=== PATIENT | female | born 1990 | race American Indian/Alaskan Native ===

== ENCOUNTER 2017-06-01 05:24 | Inpatient (IN) | payer OTHER ==
[~2017-06-01 05:24] MED LIST: Lactated Ringers 1,000 ML IV SCH; Oxytocin/Lactated Ringers 10 UNIT/1,000 ML BAG IV SCH; Sodium Chloride 0.9% 10 ML Syringe FLUSH PRN
[2017-06-01] MEDS ORDERED: ceFAZolin 2 GM in Premix Bag 1 BAG IV ONE (06:00)
[2017-06-01] MEDS ORDERED: Citric Acid/Sodium Citrate Solution 30 ML Cup PO ONE (06:00)
[2017-06-01] MEDS ORDERED: Metoclopramide 10 MG/2 ML SDV IVPUSH ONE (06:00)
[2017-06-01] MEDS ORDERED: Bupivacaine 0.5% 30 ML SDV ONE (06:59)
[2017-06-01] MEDS ORDERED: Morphine PF 1 MG/ML Amp ONE (07:18)
--- NOTE | 2017-06-01 07:19 | PCM.PREANE ---
Preanesthetic Assessment - Anesthesia/Transfusion/Family Hx Anesthesia History: Prior Anesthesia Without Reaction Family History of Anesthesia Reaction: No Transfusion History: No Prior Transfusion(s) Intubation History: Unknown - Review of Systems General: No Symptoms Pulmonary: No Symptoms (smoked last 5 months ago./ETOH/METH/Marijuana: 5 months ago.) Cardiovascular: No Symptoms Gastrointestinal: No Symptoms Neurological: No Symptoms, Numbness (CTS bilaterally with ) Other: Reports: None - Physical Assessment NPO Status Date: 05/31/17 NPO Status Time: 17:30 Pulse: 103 O2 Sat by Pulse Oximetry: 98 Respiratory Rate: 18 Blood Pressure: 133/94 Temperature: 37.2 C Vital Signs: Last Vital Signs Temp 37.2 C 06/01/17 06:05 Pulse 103 H 06/01/17 06:05 Resp 18 06/01/17 06:05 BP 133/94 H 06/01/17 06:24 Pulse Ox 98 06/01/17 06:05 Height: 1.63 m Weight: 96.298 kg ASA Class: 2 Mental Status: Alert & Oriented x3 Airway Class: Mallampati = 2 Dentition: Reports: Normal Dentition, Caries Thyro-Mental Finger Breadths: 3 Mouth Opening Finger Breadths: 3 ROM/Head Extension: Full Lungs: Clear to Auscultation, Normal Respiratory Effort Cardiovascular: Regular Rate, Regular Rhythm, No Murmurs - Lab Values: Laboratory Last Values WBC 7.80 K/mm3 (3.98-10.04) 06/01/17 06:35 RBC 4.05 M/mm3 (3.98-5.22) 06/01/17 06:35 Hgb 11.8 gm/L (11.2-15.7) 06/01/17 06:35 Hct 34.4 % (34.1-44.9) 06/01/17 06:35 MCV 84.9 fl (79.4-94.8) 06/01/17 06:35 MCH 29.1 pg (25.6-32.2) 06/01/17 06:35 MCHC 34.3 g/dl (32.2-35.5) 06/01/17 06:35 RDW Std Deviation 41.0 fL (36.4-46.3) 06/01/17 06:35 Plt Count 257 K/mm3 (182-369) 06/01/17 06:35 MPV 10.6 fl (9.4-12.3) 06/01/17 06:35 Lab values reviewed and noted and within acceptable ranges to proceed with c section. - Allergies Allergies/Adverse Reactions: Allergies Allergy/AdvReac Type Severity Reaction Status Date / Time No Known Allergies Allergy Verified 06/01/17 00:31 - Anesthesia Plan Pre-Op Medication Ordered: None - Acknowledgements Anesthesia Type Planned: Spinal Pt an Appropriate Candidate for the Planned Anesthesia: Yes Alternatives and Risks of Anesthesia Discussed w Pt/Guardian: Yes Pt/Guardian Understands and Agrees with Anesthesia Plan: Yes PreAnesthesia Questionnaire Gastrointestinal History: Reports: Cholelithiasis, Hepatitis Genitourinary History: Reports: [employer] History: Reports: - Infectious Disease History Infectious Disease History: Reports: Hepatitis C - SUBSTANCE USE Smoking Status *Q: Former Smoker Tobacco Use Within Last Twelve Months: Cigarettes Second Hand Smoke Exposure: No Recreational Drug Use History: Yes Recreational Drug Type: Reports: Other (see below) - CURRENT (IN HOUSE) MEDS Current Meds: Current Medications Lactated Ringer's (Ringers, Lactated) 1,000 mls @ 125 mls/hr IV ASDIRECTED [facility] Last Admin: 06/01/17 06:37 Dose: 500 mls/hr Oxytocin/Lactated Ringer's (Pitocin In Lr 10 Units/1,000 Ml) 10 unit in 1,000 mls @ 100 mls/hr IV ASDIRECTED [facility] PRN Reason: Protocol Sodium Chloride (Saline Flush) 10 ml FLUSH ASDIRECTED PRN PRN Reason: Keep Vein Open Discontinued Medications Citric Acid/Sodium Citrate (Bicitra Solution) 30 ml PO ONETIME ONE Stop: 06/01/17 06:01 Last Admin: 06/01/17 06:37 Dose: 30 ml Cefazolin Sodium/Dextrose 2 gm (/ Premix) 50 mls @ 100 mls/hr IV ONETIME ONE Stop: 06/01/17 06:29 Metoclopramide HCl (Reglan) 10 mg IVPUSH ONETIME ONE Stop: 06/01/17 06:01 Last Admin: 06/01/17 06:37 Dose: 10 mg
[2017-06-01] MEDS ORDERED: Phenylephrine 1% 10 MG/ML SDV ONE (07:51)
[2017-06-01] MEDS ORDERED: Lactated Ringers 1,000 ML ONE (07:51)
[2017-06-01] MEDS ORDERED: ceFAZolin 1 GM Vial ONE (07:51)
[2017-06-01] MEDS ORDERED: Ondansetron 4 MG/2 ML SDV ONE (07:51)
[2017-06-01] MEDS ORDERED: Ketorolac 30 MG/ML SDV ONE (07:51)
[2017-06-01] MEDS ORDERED: Oxytocin 10 Units/1 ML SDV ONE (07:51)
[2017-06-01] MEDS ORDERED: ePHEDrine 50 MG/ML SDV IVPUSH PRN ×2 (08:00→09:44)
[2017-06-01] MEDS ORDERED: diphenhydrAMINE 50 MG/ML SDV IVPUSH PRN ×2 (08:00→09:44)
[2017-06-01] MEDS ORDERED: Ondansetron 4 MG/2 ML SDV IVPUSH PRN (08:00)
[2017-06-01] MEDS ORDERED: fentaNYL 100 MCG/2 ML SDV IVPUSH PRN (08:00)
[2017-06-01] MEDS ORDERED: Meperidine PF 50 MG/ML Syringe IVPUSH PRN (08:00)
[2017-06-01] MEDS ORDERED: Phenylephrine 1 MG in Sodium Chloride 0.9% 10 ML IV SCH (08:00)
[2017-06-01] MEDS ORDERED: ePHEDrine 50 MG/ML SDV ONE (08:42)
--- NOTE | 2017-06-01 08:56 | PCM.POSTAN ---
POST ANESTHESIA ASSESSMENT - MENTAL STATUS Mental Status: Alert - VITAL SIGNS Pulse Rate: 81 SaO2: 97 Resp Rate: 16 Blood Pressure: 96/66 Temperature: 36.6 C - RESPIRATORY Respiratory Status: Respiratory Rate WNL, Airway Patent, O2 Saturation Stable, Supplemental Oxygen - CARDIOVASCULAR CV Status: Pulse Rate WNL, Blood Pressure Stable - GASTROINTESTINAL GI Status: No Symptoms - POST OP HYDRATION Hydration Status: Adequate & Stable
--- NOTE | 2017-06-01 09:05 | PCM.OPNOTE ---
- General Post-Op/Procedure Note Date of Surgery/Procedure: 06/01/17 Operative Procedure(s): repeat section Findings: viable male, weight 6#13 oz at 0811. Normal uterus tubes and ovaries. 8/9. Pre Op Diagnosis: Cholestasis of , 37+ week Post-Op Diagnosis: Same Anesthesia Technique: Spinal Primary Surgeon: Jess Solitario Anesthesia Provider: Caryn Rojas Adult Services Librarian: Radha Mandel Role of Adult Services Librarian: retraction, patient safety Fluid Replacement, Intraop: 1,000 Output, Urine Amount: 125 EBL in mLs: 600 Complications: None Condition: Good Free Text/Narrative:: Intake & Output 05/31/17 06/01/17 06/01/17 22:59 06:59 14:59 Output Total 600 Balance -600 The patient was taken to the operating room where epidural anesthesia was dosed to surgical levels without difficulty. The patient was prepped and draped in the usual sterile fashion in the dorsal supine position with a leftward tilt. A Pfannenstiel skin incision was made with the scalpel and carried through to the underlying layer of fascia. The fascia was incised in the midline and extended laterally using Ruby scissors. Emery clamps were used to elevate the superior aspect of the fascial incision, which was elevated, and the underlying rectus muscles were dissected off bluntly and using Ruby scissors. Attention was then turned to the inferior aspect of the fascial incision, which in similar fashion was grasped with Emery clamps, elevated, and the underlying rectus muscles were dissected off bluntly and using the ruby. The rectus muscles were dissected in the midline. The peritoneum was entered bluntly; this incision was extended superiorly and inferiorly with good visualization of the bladder. The bladder blade was inserted. The vesicouterine peritoneum was identified and entered sharply using Metzenbaum scissors. This incision was extended laterally and the bladder flap was created digitally. The bladder blade was reinserted. The lower uterine segment was incised in a transverse fashion using the scalpel and with digital traction. Clear fluid was noted. The infant was subsequently delivered by flexing the head to the incision. Vacuum utilized to guide floating head through incision. Body and shoulders followed without difficulty. The cord was clamped and cut. The infant was subsequently handed to the awaiting button grader whose presence had been requested.. The placenta was delivered spontaneously intact with a three-vessel cord noted. The uterus was exteriorized and cleared of all clots and debris. The uterine incision was repaired in 2 layers using 0 monocryl. Hemostasis was visualized. Hemostasis was visualized bilaterally. The uterus was returned to the abdomen. The uterine incision was reexamined and it was noted to be hemostatic. The pelvis was copiously irrigated. The fascia was closed with 0 Monocryl suture, and the skin was closed with 3-0 monocryl. Sponge , lap, and instrument counts were correct x2. The patient was stable at the completion of the procedure and was subsequently transferred to the recovery room in stable condition.
[2017-06-01] MEDS ORDERED: Naloxone 0.4 MG/ML SDV IVPUSH PRN (09:44)
[2017-06-01] MEDS ORDERED: Lanolin 100% Cream 7 GM Tube TOP PRN (09:44)
[2017-06-01] MEDS ORDERED: Dextrose 5%-Lactated Ringers 1,000 ML IV SCH (09:44)
[2017-06-01] MEDS: Ketorolac 30 MG/ML SDV IVPUSH SCH ×2 (14:17→21:13)
[2017-06-01] MEDS ORDERED: Lactated Ringers 1,000 ML IV ONE (15:00)
[2017-06-02] MEDS: Ketorolac 30 MG/ML SDV IVPUSH SCH (02:33)
--- NOTE | 2017-06-02 07:33 | PCM48HPAN ---
Post Anesthesia Note - EVALUATION WITHIN 48HRS OF ANESTHETIC Vital Signs in Normal Range: Yes Patient Participated in Evaluation: Yes Respiratory Function Stable: Yes Airway Patent: Yes Cardiovascular Function Stable: Yes Hydration Status Stable: Yes Pain Control Satisfactory: Yes Nausea and Vomiting Control Satisfactory: Yes Mental Status Recovered: Yes
[2017-06-02] MEDS ORDERED: Pneumococcal Polyvalent-23 Vaccine 0.5 ML SDV IM ONE (08:30)
[2017-06-02] MEDS ORDERED: Measles, Mumps & Rubella Vaccine 0.5 ML SDV SUBCUT ONE (08:30)
[2017-06-02] MEDS: Ibuprofen 600 MG Tab PO PRN ×2 (08:36→16:07)
[2017-06-03] MEDS: Ibuprofen 600 MG Tab PO PRN ×3 (01:24→18:27)
--- NOTE | 2017-06-03 09:21 | PCM.PNPP ---
- General Info Date of Service: 06/02/17 Functional Status: Reports: Pain Controlled - Review of Systems General: Reports: No Symptoms HEENT: Reports: No Symptoms Pulmonary: Reports: No Symptoms Cardiovascular: Reports: No Symptoms Gastrointestinal: Reports: No Symptoms Genitourinary: Reports: No Symptoms Musculoskeletal: Reports: No Symptoms Skin: Reports: No Symptoms Neurological: Reports: No Symptoms Psychiatric: Reports: No Symptoms - General Info Date of Service: 06/02/17 - Patient Data Vital Signs - Most Recent: Last Vital Signs Temp 36.9 C 06/03/17 06:47 Pulse 87 06/03/17 08:30 Resp 16 06/03/17 08:30 BP 136/92 H 06/03/17 08:30 Pulse Ox 98 06/03/17 08:29 Weight - Most Recent: 96.298 kg I&O - Last 24 Hours: Intake & Output 06/02/17 06/03/17 06/03/17 22:59 06:59 14:59 Intake Total 480 Balance 480 Med Orders - Current: Current Medications Diphenhydramine HCl (Benadryl) 25 mg IVPUSH Q6H PRN PRN Reason: Itching or Nausea Last Admin: 06/01/17 10:37 Dose: 25 mg Emollient Ointment (Lansinoh Hpa) 0 gm TOP ASDIRECTED PRN PRN Reason: Sore Nipples Ephedrine Sulfate (Ephedrine Sulfate) 5 mg IVPUSH SEECOMMENT PRN PRN Reason: Other Ibuprofen (Motrin) 600 mg PO Q6H PRN PRN Reason: mild pain or fever Last Admin: 06/03/17 01:24 Dose: 600 mg Labetalol HCl (Normodyne) 100 mg PO BID [facility] Naloxone HCl (Narcan) 0.1 mg IVPUSH SEECOMMENT PRN PRN Reason: Respiratory Depression Discontinued Medications Bupivacaine HCl (Marcaine 0.5%) Confirm Administered Dose 30 ml .ROUTE .STK-MED ONE Stop: 06/01/17 07:00 Last Admin: 06/01/17 08:02 Dose: 20 ml Cefazolin Sodium (Ancef) Confirm Administered Dose 2 gm .ROUTE .STK-MED ONE Stop: 06/01/17 07:52 Citric Acid/Sodium Citrate (Bicitra Solution) 30 ml PO ONETIME ONE Stop: 06/01/17 06:01 Last Admin: 06/01/17 06:37 Dose: 30 ml Diphenhydramine HCl (Benadryl) 25 mg IVPUSH Q6H PRN PRN Reason: pruritis Stop: 06/01/17 11:00 Ephedrine Sulfate (Ephedrine Sulfate) 5 mg IVPUSH ASDIRECTED PRN PRN Reason: Hypotension Stop: 06/01/17 11:00 Ephedrine Sulfate (Ephedrine Sulfate) Confirm Administered Dose 50 mg .ROUTE .STK-MED ONE Stop: 06/01/17 08:43 Fentanyl (Sublimaze) 50 mcg IVPUSH Q5M PRN PRN Reason: Pain Stop: 06/01/17 11:00 Cefazolin Sodium/Dextrose 2 gm (/ Premix) 50 mls @ 100 mls/hr IV ONETIME ONE Stop: 06/01/17 06:29 Last Admin: 06/01/17 22:14 Dose: Not Given Lactated Ringer's (Ringers, Lactated) 1,000 mls @ 125 mls/hr IV ASDIRECTED [facility] Last Admin: 06/01/17 06:37 Dose: 500 mls/hr Oxytocin/Lactated Ringer's (Pitocin In Lr 10 Units/1,000 Ml) 10 unit in 1,000 mls @ 100 mls/hr IV ASDIRECTED [facility] PRN Reason: Protocol Lactated Ringer's (Ringers, Lactated) Confirm Administered Dose 1,000 mls @ as directed .ROUTE .STK-MED ONE Stop: 06/01/17 07:52 Phenylephrine HCl 1 mg/ Sodium (Chloride) 10.1 mls @ 1 mls/sec IV TITRATE [facility] PRN Reason: Protocol Stop: 06/01/17 11:00 Dextrose/Lactated Ringer's (Dextrose 5%-Lactated Ringers) 1,000 mls @ 125 mls/ hr IV ASDIRECTED [facility] Stop: 06/01/17 17:43 Last Admin: 06/01/17 13:05 Dose: 125 mls/hr Dextrose/Lactated Ringer's (Dextrose 5%-Lactated Ringers) 700 mls @ 999 mls/hr IV ASDIRECTED ONE Stop: 06/01/17 15:12 Last Admin: 06/01/17 14:15 Dose: 999 mls/hr Lactated Ringer's (Ringers, Lactated) 1,000 mls @ 999 mls/hr IV .BOLUS ONE Stop: 06/01/17 16:00 Last Admin: 06/01/17 15:17 Dose: 999 mls/hr Ketorolac Tromethamine (Toradol) Confirm Administered Dose 30 mg .ROUTE .STK- MED ONE Stop: 06/01/17 07:52 Ketorolac Tromethamine (Toradol) 30 mg IVPUSH Q6H [facility] Stop: 06/02/17 02:01 Last Admin: 06/02/17 02:33 Dose: 30 mg Measles/Mumps/Rubella Vaccine Live (M-M-R Ii Vaccine) 0.5 ml SUBCUT .ONCE ONE Stop: 06/02/17 08:31 Last Admin: 06/02/17 08:23 Dose: 0.5 ml Meperidine HCl (Demerol) 12.5 mg IVPUSH ONETIME PRN PRN Reason: shivering Stop: 06/01/17 11:00 Metoclopramide HCl (Reglan) 10 mg IVPUSH ONETIME ONE Stop: 06/01/17 06:01 Last Admin: 06/01/17 06:37 Dose: 10 mg Morphine Sulfate (Duramorph Pf) Confirm Administered Dose 1 mg .ROUTE .STK-MED ONE Stop: 06/01/17 07:19 Ondansetron HCl (Zofran) Confirm Administered Dose 4 mg .ROUTE .STK-MED ONE Stop: 06/01/17 07:52 Ondansetron HCl (Zofran) 4 mg IVPUSH ONETIME PRN PRN Reason: Nausea/Vomiting Stop: 06/01/17 11:00 Oxytocin (Pitocin) Confirm Administered Dose 10 unit .ROUTE .STK-MED ONE Stop: 06/01/17 07:52 Phenylephrine HCl (Bossman-Synephrine) Confirm Administered Dose 10 mg .ROUTE .STK- MED ONE Stop: 06/01/17 07:52 Pneumococcal Polyvalent Vaccine (Pneumovax 23) 0.5 ml IM .ONCE ONE Stop: 06/02/17 08:31 Last Admin: 06/02/17 08:19 Dose: 0.5 ml Sodium Chloride (Saline Flush) 10 ml FLUSH ASDIRECTED PRN PRN Reason: Keep Vein Open - Infant Interaction Disposition, : [place] at Bedside - Recovery Exam Fundal Tone: Firm Fundal Level: 1 Fingerbreadths Below Umbilicus Fundal Placement: Midline Lochia Amount: Scant Lochia Color: Rubra/Red Perineum Description: Intact, Minimal Bruising/Swelling Episiotomy/Laceration: None Bladder Status: Voiding Urinary Elimination: Indwelling Catheter - Exam General: Alert, Oriented HEENT: Pupils Equal Neck: Supple Lungs: Clear to Auscultation, Normal Respiratory Effort Cardiovascular: Regular Rate, Regular Rhythm GI/Abdominal Exam: Normal Bowel Sounds, Soft, Non-Tender, No Organomegaly, No Distention, No Abnormal Bruit, No Mass, Pelvis Stable Extremities: Normal Inspection, Normal Range of Motion, Non-Tender, No Pedal Edema, Normal Capillary Refill Skin: Warm, Dry, Intact Wound/Incisions: Healing Well Neurological: No New Focal Deficit Psy/Mental Status: Alert, Normal Affect, Normal Mood - Problem List Review Problem List Initiated/Reviewed/Updated: Yes - My Orders Last 24 Hours: My Active Orders 06/03/17 21:00 Labetalol [Normodyne] 100 mg PO BID - Assessment Assessment:: POD1 Doing well. - Plan Plan:: Likely home tomorrow if no changes
--- NOTE | 2017-06-03 09:25 | PCM.PNPP ---
- General Info Date of Service: 06/03/17 Functional Status: Reports: Pain Controlled - Review of Systems General: Reports: No Symptoms HEENT: Reports: No Symptoms Pulmonary: Reports: No Symptoms Cardiovascular: Reports: No Symptoms Gastrointestinal: Reports: No Symptoms Genitourinary: Reports: No Symptoms Musculoskeletal: Reports: No Symptoms Skin: Reports: No Symptoms Neurological: Reports: No Symptoms Psychiatric: Reports: No Symptoms - General Info Date of Service: 06/03/17 - Patient Data Vital Signs - Most Recent: Last Vital Signs Temp 36.9 C 06/03/17 06:47 Pulse 87 06/03/17 08:30 Resp 16 06/03/17 08:30 BP 136/92 H 06/03/17 08:30 Pulse Ox 98 06/03/17 08:29 Weight - Most Recent: 96.298 kg I&O - Last 24 Hours: Intake & Output 06/02/17 06/03/17 06/03/17 22:59 06:59 14:59 Intake Total 480 Balance 480 Med Orders - Current: Current Medications Diphenhydramine HCl (Benadryl) 25 mg IVPUSH Q6H PRN PRN Reason: Itching or Nausea Last Admin: 06/01/17 10:37 Dose: 25 mg Emollient Ointment (Lansinoh Hpa) 0 gm TOP ASDIRECTED PRN PRN Reason: Sore Nipples Ephedrine Sulfate (Ephedrine Sulfate) 5 mg IVPUSH SEECOMMENT PRN PRN Reason: Other Ibuprofen (Motrin) 600 mg PO Q6H PRN PRN Reason: mild pain or fever Last Admin: 06/03/17 01:24 Dose: 600 mg Labetalol HCl (Normodyne) 100 mg PO BID [facility] Naloxone HCl (Narcan) 0.1 mg IVPUSH SEECOMMENT PRN PRN Reason: Respiratory Depression Discontinued Medications Bupivacaine HCl (Marcaine 0.5%) Confirm Administered Dose 30 ml .ROUTE .STK-MED ONE Stop: 06/01/17 07:00 Last Admin: 06/01/17 08:02 Dose: 20 ml Cefazolin Sodium (Ancef) Confirm Administered Dose 2 gm .ROUTE .STK-MED ONE Stop: 06/01/17 07:52 Citric Acid/Sodium Citrate (Bicitra Solution) 30 ml PO ONETIME ONE Stop: 06/01/17 06:01 Last Admin: 06/01/17 06:37 Dose: 30 ml Diphenhydramine HCl (Benadryl) 25 mg IVPUSH Q6H PRN PRN Reason: pruritis Stop: 06/01/17 11:00 Ephedrine Sulfate (Ephedrine Sulfate) 5 mg IVPUSH ASDIRECTED PRN PRN Reason: Hypotension Stop: 06/01/17 11:00 Ephedrine Sulfate (Ephedrine Sulfate) Confirm Administered Dose 50 mg .ROUTE .STK-MED ONE Stop: 06/01/17 08:43 Fentanyl (Sublimaze) 50 mcg IVPUSH Q5M PRN PRN Reason: Pain Stop: 06/01/17 11:00 Cefazolin Sodium/Dextrose 2 gm (/ Premix) 50 mls @ 100 mls/hr IV ONETIME ONE Stop: 06/01/17 06:29 Last Admin: 06/01/17 22:14 Dose: Not Given Lactated Ringer's (Ringers, Lactated) 1,000 mls @ 125 mls/hr IV ASDIRECTED [facility] Last Admin: 06/01/17 06:37 Dose: 500 mls/hr Oxytocin/Lactated Ringer's (Pitocin In Lr 10 Units/1,000 Ml) 10 unit in 1,000 mls @ 100 mls/hr IV ASDIRECTED [facility] PRN Reason: Protocol Lactated Ringer's (Ringers, Lactated) Confirm Administered Dose 1,000 mls @ as directed .ROUTE .STK-MED ONE Stop: 06/01/17 07:52 Phenylephrine HCl 1 mg/ Sodium (Chloride) 10.1 mls @ 1 mls/sec IV TITRATE [facility] PRN Reason: Protocol Stop: 06/01/17 11:00 Dextrose/Lactated Ringer's (Dextrose 5%-Lactated Ringers) 1,000 mls @ 125 mls/ hr IV ASDIRECTED [facility] Stop: 06/01/17 17:43 Last Admin: 06/01/17 13:05 Dose: 125 mls/hr Dextrose/Lactated Ringer's (Dextrose 5%-Lactated Ringers) 700 mls @ 999 mls/hr IV ASDIRECTED ONE Stop: 06/01/17 15:12 Last Admin: 06/01/17 14:15 Dose: 999 mls/hr Lactated Ringer's (Ringers, Lactated) 1,000 mls @ 999 mls/hr IV .BOLUS ONE Stop: 06/01/17 16:00 Last Admin: 06/01/17 15:17 Dose: 999 mls/hr Ketorolac Tromethamine (Toradol) Confirm Administered Dose 30 mg .ROUTE .STK- MED ONE Stop: 06/01/17 07:52 Ketorolac Tromethamine (Toradol) 30 mg IVPUSH Q6H [facility] Stop: 06/02/17 02:01 Last Admin: 06/02/17 02:33 Dose: 30 mg Measles/Mumps/Rubella Vaccine Live (M-M-R Ii Vaccine) 0.5 ml SUBCUT .ONCE ONE Stop: 06/02/17 08:31 Last Admin: 06/02/17 08:23 Dose: 0.5 ml Meperidine HCl (Demerol) 12.5 mg IVPUSH ONETIME PRN PRN Reason: shivering Stop: 06/01/17 11:00 Metoclopramide HCl (Reglan) 10 mg IVPUSH ONETIME ONE Stop: 06/01/17 06:01 Last Admin: 06/01/17 06:37 Dose: 10 mg Morphine Sulfate (Duramorph Pf) Confirm Administered Dose 1 mg .ROUTE .STK-MED ONE Stop: 06/01/17 07:19 Ondansetron HCl (Zofran) Confirm Administered Dose 4 mg .ROUTE .STK-MED ONE Stop: 06/01/17 07:52 Ondansetron HCl (Zofran) 4 mg IVPUSH ONETIME PRN PRN Reason: Nausea/Vomiting Stop: 06/01/17 11:00 Oxytocin (Pitocin) Confirm Administered Dose 10 unit .ROUTE .STK-MED ONE Stop: 06/01/17 07:52 Phenylephrine HCl (Bossman-Synephrine) Confirm Administered Dose 10 mg .ROUTE .STK- MED ONE Stop: 06/01/17 07:52 Pneumococcal Polyvalent Vaccine (Pneumovax 23) 0.5 ml IM .ONCE ONE Stop: 06/02/17 08:31 Last Admin: 06/02/17 08:19 Dose: 0.5 ml Sodium Chloride (Saline Flush) 10 ml FLUSH ASDIRECTED PRN PRN Reason: Keep Vein Open - Infant Interaction Disposition, : [place] at Bedside - Recovery Exam Fundal Tone: Firm Fundal Level: 1 Fingerbreadths Below Umbilicus Fundal Placement: Midline Lochia Amount: Scant Lochia Color: Rubra/Red Perineum Description: Intact, Minimal Bruising/Swelling Episiotomy/Laceration: None Bladder Status: Voiding Urinary Elimination: Indwelling Catheter - Exam General: Alert, Oriented HEENT: Pupils Equal Neck: Supple Lungs: Clear to Auscultation, Normal Respiratory Effort Cardiovascular: Regular Rate, Regular Rhythm GI/Abdominal Exam: Normal Bowel Sounds, Soft, Non-Tender, No Organomegaly, No Distention, No Abnormal Bruit, No Mass, Pelvis Stable Extremities: Normal Inspection, Normal Range of Motion, Non-Tender, No Pedal Edema, Normal Capillary Refill Skin: Warm, Dry, Intact Wound/Incisions: Healing Well Neurological: No New Focal Deficit Psy/Mental Status: Alert, Normal Affect, Normal Mood - Problem List Review Problem List Initiated/Reviewed/Updated: Yes - My Orders Last 24 Hours: My Active Orders 06/03/17 21:00 Labetalol [Normodyne] 100 mg PO BID - Assessment Assessment:: POD1 Doing well. Increasing blood pressures. No headaches or other symptoms. Not severe range. - Plan Plan:: Likely home tomorrow if no changes Will start labetolol and discharge tomorrow if controlled and no other issues.
[2017-06-03] MEDS: Labetalol 100 MG Tab PO SCH ×2 (12:09→21:19)
[2017-06-04] MEDS: Ibuprofen 600 MG Tab PO PRN ×2 (00:14→08:08)
[2017-06-04] MEDS: Labetalol 100 MG Tab PO SCH (08:09)
--- NOTE | 2017-06-04 10:20 | PCM.DCSUM1 ---
Discharge Summary - Hospital Course Free Text/Narrative:: [facility] Post-Op/Procedure Note Patient Name: ALYCIA HARRISON Date of : 89 Patient Status: Inpatient Attending Provider: Jess Solitario Date: 06/01/17 09:00 Initialization Date: 06/01/17 09:00 - General Post-Op/Procedure Note Date of Surgery/Procedure: 06/01/17 Operative Procedure(s): repeat section Findings: viable male, weight 6#13 oz at 0811. Normal uterus tubes and ovaries. 8/9. Pre Op Diagnosis: Cholestasis of , 37+ week Post-Op Diagnosis: Same Anesthesia Technique: Spinal Primary Surgeon: Jess Solitario Anesthesia Provider: Caryn Rojas Child Care Associate Teacher: Radha Mandel Role of Child Care Associate Teacher: retraction, patient safety Fluid Replacement, Intraop: 1,000 Output, Urine Amount: 125 EBL in mLs: 600 Complications: None Condition: Good Free Text/Narrative:: Intake & Output 05/31/17 06/01/17 06/01/17 22:59 06:59 14:59 Output Total 600 Balance -600 The patient was taken to the operating room where epidural anesthesia was dosed to surgical levels without difficulty. The patient was prepped and draped in the usual sterile fashion in the dorsal supine position with a leftward tilt. A Pfannenstiel skin incision was made with the scalpel and carried through to the underlying layer of fascia. The fascia was incised in the midline and extended laterally using Ruby scissors. Emery clamps were used to elevate the superior aspect of the fascial incision, which was elevated, and the underlying rectus muscles were dissected off bluntly and using Ruby scissors. Attention was then turned to the inferior aspect of the fascial incision, which in similar fashion was grasped with Emery clamps, elevated, and the underlying rectus muscles were dissected off bluntly and using the ruby. The rectus muscles were dissected in the midline. The peritoneum was entered bluntly; this incision was extended superiorly and inferiorly with good visualization of the bladder. The bladder blade was inserted. The vesicouterine peritoneum was identified and entered sharply using Metzenbaum scissors. This incision was extended laterally and the bladder flap was created digitally. The bladder blade was reinserted. The lower uterine segment was incised in a transverse fashion using the scalpel and with digital traction. Clear fluid was noted. The was subsequently delivered by flexing the head to the incision. Vacuum utilized to guide floating head through incision. Body and shoulders followed without difficulty. The cord was clamped and cut. The was subsequently handed to the awaiting patrol guard whose presence had been requested.. The placenta was delivered spontaneously intact with a three-vessel cord noted. The uterus was exteriorized and cleared of all clots and debris. The uterine incision was repaired in 2 layers using 0 monocryl. Hemostasis was visualized. Hemostasis was visualized bilaterally. The uterus was returned to the abdomen. The uterine incision was reexamined and it was noted to be hemostatic. The pelvis was copiously irrigated. The fascia was closed with 0 Monocryl suture, and the skin was closed with 3-0 monocryl. Sponge , lap, and instrument counts were correct x2. The patient was stable at the completion of the procedure and was subsequently transferred to the recovery room in stable condition. HPI Initial Comments: [facility] Post-Op/Procedure Note Patient Name: ALYCIA HARRISON Date of : 89 Patient Status: Inpatient Attending Provider: Jess Solitario Date: 06/01/17 09:00 Initialization Date: 06/01/17 09:00 - General Post-Op/Procedure Note Date of Surgery/Procedure: 06/01/17 Operative Procedure(s): repeat section Findings: viable male, weight 6#13 oz at 0811. Normal uterus tubes and ovaries. 8/9. Pre Op Diagnosis: Cholestasis of , 37+ week Post-Op Diagnosis: Same Anesthesia Technique: Spinal Primary Surgeon: Jess Solitario Anesthesia Provider: Caryn Rojas Child Care Associate Teacher: Radha Mandel Role of Child Care Associate Teacher: retraction, patient safety Fluid Replacement, Intraop: 1,000 Output, Urine Amount: 125 EBL in mLs: 600 Complications: None Condition: Good Free Text/Narrative:: Intake & Output 05/31/17 06/01/17 06/01/17 22:59 06:59 14:59 Output Total 600 Balance -600 The patient was taken to the operating room where epidural anesthesia was dosed to surgical levels without difficulty. The patient was prepped and draped in the usual sterile fashion in the dorsal supine position with a leftward tilt. A Pfannenstiel skin incision was made with the scalpel and carried through to the underlying layer of fascia. The fascia was incised in the midline and extended laterally using Ruby scissors. Emery clamps were used to elevate the superior aspect of the fascial incision, which was elevated, and the underlying rectus muscles were dissected off bluntly and using Ruby scissors. Attention was then turned to the inferior aspect of the fascial incision, which in similar fashion was grasped with Emery clamps, elevated, and the underlying rectus muscles were dissected off bluntly and using the ruby. The rectus muscles were dissected in the midline. The peritoneum was entered bluntly; this incision was extended superiorly and inferiorly with good visualization of the bladder. The bladder blade was inserted. The vesicouterine peritoneum was identified and entered sharply using Metzenbaum scissors. This incision was extended laterally and the bladder flap was created digitally. The bladder blade was reinserted. The lower uterine segment was incised in a transverse fashion using the scalpel and with digital traction. Clear fluid was noted. The was subsequently delivered by flexing the head to the incision. Vacuum utilized to guide floating head through incision. Body and shoulders followed without difficulty. The cord was clamped and cut. The was subsequently handed to the awaiting patrol guard whose presence had been requested.. The placenta was delivered spontaneously intact with a three-vessel cord noted. The uterus was exteriorized and cleared of all clots and debris. The uterine incision was repaired in 2 layers using 0 monocryl. Hemostasis was visualized. Hemostasis was visualized bilaterally. The uterus was returned to the abdomen. The uterine incision was reexamined and it was noted to be hemostatic. The pelvis was copiously irrigated. The fascia was closed with 0 Monocryl suture, and the skin was closed with 3-0 monocryl. Sponge , lap, and instrument counts were correct x2. The patient was stable at the completion of the procedure and was subsequently transferred to the recovery room in stable condition. Brief History: [facility] . Post-Op/Procedure Note. [facility]: [id number]. Date of : [birth year]Patient Status: Inpatient. Attending Provider: Jess SolitarioAccount Number: [id number]. Date: 06/01/17 09:00Initialization Date: 06/01/17 09:00. - General Post-Op/Procedure Note. Date of Surgery/Procedure: 06/01/17. Operative Procedure(s): repeat section. Findings: viable male, weight 6#13 oz at 0811. Normal uterus tubes and ovaries. 8/9. Pre Op Diagnosis: Cholestasis of , 37+ week . Post-Op Diagnosis: Same. Anesthesia Technique: Spinal. Primary Surgeon: Jess Solitario. Anesthesia Provider: Caryn Rojas. Child Care Associate Teacher: Radha Mandel Role of Child Care Associate Teacher: retraction, patient safety. Fluid Replacement, Intraop: 1,000. Output, Urine Amount: 125. EBL in mLs: 600. Complications: None. Condition: Good. Free Text/Narrative:: Intake & Output. 05/31/1801/. 22: [id number]. Output [id number]. Balance-600. The patient was taken to the operating room where epidural anesthesia was dosed to surgical levels without difficulty. The patient was prepped and draped in the usual sterile fashion in the dorsal supine position with a leftward tilt. A Pfannenstiel skin incision was made with the scalpel and carried through to the underlying layer of fascia. The fascia was incised in the midline and extended laterally using Ruby scissors. Emery clamps were used to elevate the superior aspect of the fascial incision, which was elevated, and the underlying rectus muscles were dissected off bluntly and using Ruby scissors. Attention was then turned to the inferior aspect of the fascial incision, which in similar fashion was grasped with Emery clamps, elevated, and the underlying rectus muscles were dissected off bluntly and using the ruby. The rectus muscles were dissected in the midline. The peritoneum was entered bluntly; this incision was extended superiorly and inferiorly with good visualization of the bladder. The bladder blade was inserted. The vesicouterine peritoneum was identified and entered sharply using Metzenbaum scissors. This incision was extended laterally and the bladder flap was created digitally. The bladder blade was reinserted. The lower uterine segment was incised in a transverse fashion using the scalpel and with digital traction. Clear fluid was noted. The infant was subsequently delivered by flexing the head to the incision. Vacuum utilized to guide floating head through incision. Body and shoulders followed without difficulty. The cord was clamped and cut. The infant was subsequently handed to the awaiting patrol guard whose presence had been requested.. The placenta was delivered spontaneously intact with a three-vessel cord noted. The uterus was exteriorized and cleared of all clots and debris. The uterine incision was repaired in 2 layers using 0 monocryl. Hemostasis was visualized. Hemostasis was visualized bilaterally. The uterus was returned to the abdomen. The uterine incision was reexamined and it was noted to be hemostatic. The pelvis was copiously irrigated. The fascia was closed with 0 Monocryl suture, and the skin was closed with 3-0 monocryl. Sponge, lap, and instrument counts were correct x2. The patient was stable at the completion of the procedure and was subsequently transferred to the recovery room in stable condition. - Discharge Data Discharge Date: 06/04/17 Discharge Disposition: Home, Self-Care 01 Condition: Good - Discharge Diagnosis/Problem(s) (1) delivery delivered SNOMED Code(s): 451287896 ICD Code: O82 - ENCOUNTER FOR DELIVERY WITHOUT INDICATION Status: Acute Current Visit: Yes (2) 37 weeks gestation of SNOMED Code(s): 46429531 ICD Code: Z3A.37 - 37 WEEKS GESTATION OF Status: Acute Current Visit: Yes (3) Cholestasis during in third trimester SNOMED Code(s): 404036804 ICD Code: O26.613 - LIVER AND BILIARY TRACT DISORD IN , THIRD TRIMESTER; K83.1 - OBSTRUCTION OF BILE DUCT Status: Acute Current Visit: Yes - Patient Summary/Data Operative Procedure(s) Performed: repeat section Complications: None Consults: None Hospital Course: Uneventful - Patient Instructions Diet: Regular Diet as Tolerated Driving: Do Not Drive Showering/Bathing: May Shower, No Tub Bathing/Swimming (X6 weeks) Wound/Incision Care: Keep Operative Site/Wound Site Clean and Dry Notify Provider of: Fever, Increased Pain, Swelling and Redness, Drainage, Nausea and/or Vomiting - Discharge Plan Prescriptions/Med Rec: Labetalol [Normodyne] 100 mg PO BID #60 tablet Home Medications: Home Meds Ibuprofen [IJD: Ibuprofen] 600 mg PO Q6H PRN tablet 06/04/17 [Rx] Labetalol [Normodyne] 100 mg PO BID #60 tablet 06/04/17 [Rx] Patient Handouts: Delivery, Care After, Home Care Instructions for Mom , Steps to Quit Smoking - Discharge Summary/Plan Comment DC Time >30 min.: No - Patient Data Vitals - Most Recent: Last Vital Signs Temp 97.9 F 06/04/17 08:04 Pulse 73 06/04/17 08:09 Resp 18 06/04/17 08:04 BP 131/88 06/04/17 08:09 Pulse Ox 98 06/04/17 08:04 Weight - Most Recent: 212 lb 4.8 oz I&O - Last 24 hours: Intake & Output 06/03/17 06/04/17 06/04/17 22:59 06:59 14:59 Intake Total 240 Balance 240 Med Orders - Current: Current Medications Diphenhydramine HCl (Benadryl) 25 mg IVPUSH Q6H PRN PRN Reason: Itching or Nausea Last Admin: 06/01/17 10:37 Dose: 25 mg Emollient Ointment (Lansinoh Hpa) 0 gm TOP ASDIRECTED PRN PRN Reason: Sore Nipples Ephedrine Sulfate (Ephedrine Sulfate) 5 mg IVPUSH SEECOMMENT PRN PRN Reason: Other Ibuprofen (Motrin) 600 mg PO Q6H PRN PRN Reason: mild pain or fever Last Admin: 06/04/17 08:08 Dose: 600 mg Labetalol HCl (Normodyne) 100 mg PO BID CATALINA Last Admin: 06/04/17 08:09 Dose: 100 mg Naloxone HCl (Narcan) 0.1 mg IVPUSH SEECOMMENT PRN PRN Reason: Respiratory Depression Discontinued Medications Bupivacaine HCl (Marcaine 0.5%) Confirm Administered Dose 30 ml .ROUTE .STK-MED ONE Stop: 06/01/17 07:00 Last Admin: 06/01/17 08:02 Dose: 20 ml Cefazolin Sodium (Ancef) Confirm Administered Dose 2 gm .ROUTE .STK-MED ONE Stop: 06/01/17 07:52 Citric Acid/Sodium Citrate (Bicitra Solution) 30 ml PO ONETIME ONE Stop: 06/01/17 06:01 Last Admin: 06/01/17 06:37 Dose: 30 ml Diphenhydramine HCl (Benadryl) 25 mg IVPUSH Q6H PRN PRN Reason: pruritis Stop: 06/01/17 11:00 Ephedrine Sulfate (Ephedrine Sulfate) 5 mg IVPUSH ASDIRECTED PRN PRN Reason: Hypotension Stop: 06/01/17 11:00 Ephedrine Sulfate (Ephedrine Sulfate) Confirm Administered Dose 50 mg .ROUTE .STK-MED ONE Stop: 06/01/17 08:43 Fentanyl (Sublimaze) 50 mcg IVPUSH Q5M PRN PRN Reason: Pain Stop: 06/01/17 11:00 Cefazolin Sodium/Dextrose 2 gm (/ Premix) 50 mls @ 100 mls/hr IV ONETIME ONE Stop: 06/01/17 06:29 Last Admin: 06/01/17 22:14 Dose: Not Given Lactated Ringer's (Ringers, Lactated) 1,000 mls @ 125 mls/hr IV ASDIRECTED CATALINA Last Admin: 06/01/17 06:37 Dose: 500 mls/hr Oxytocin/Lactated Ringer's (Pitocin In Lr 10 Units/1,000 Ml) 10 unit in 1,000 mls @ 100 mls/hr IV ASDIRECTED CATALINA PRN Reason: Protocol Lactated Ringer's (Ringers, Lactated) Confirm Administered Dose 1,000 mls @ as directed .ROUTE .STK-MED ONE Stop: 06/01/17 07:52 Phenylephrine HCl 1 mg/ Sodium (Chloride) 10.1 mls @ 1 mls/sec IV TITRATE CATALINA PRN Reason: Protocol Stop: 06/01/17 11:00 Dextrose/Lactated Ringer's (Dextrose 5%-Lactated Ringers) 1,000 mls @ 125 mls/ hr IV ASDIRECTED CATALINA Stop: 06/01/17 17:43 Last Admin: 06/01/17 13:05 Dose: 125 mls/hr Dextrose/Lactated Ringer's (Dextrose 5%-Lactated Ringers) 700 mls @ 999 mls/hr IV ASDIRECTED ONE Stop: 06/01/17 15:12 Last Admin: 06/01/17 14:15 Dose: 999 mls/hr Lactated Ringer's (Ringers, Lactated) 1,000 mls @ 999 mls/hr IV .BOLUS ONE Stop: 06/01/17 16:00 Last Admin: 06/01/17 15:17 Dose: 999 mls/hr Ketorolac Tromethamine (Toradol) Confirm Administered Dose 30 mg .ROUTE .STK- MED ONE Stop: 06/01/17 07:52 Ketorolac Tromethamine (Toradol) 30 mg IVPUSH Q6H CATALINA Stop: 06/02/17 02:01 Last Admin: 06/02/17 02:33 Dose: 30 mg Measles/Mumps/Rubella Vaccine Live (M-M-R Ii Vaccine) 0.5 ml SUBCUT .ONCE ONE Stop: 06/02/17 08:31 Last Admin: 06/02/17 08:23 Dose: 0.5 ml Meperidine HCl (Demerol) 12.5 mg IVPUSH ONETIME PRN PRN Reason: shivering Stop: 06/01/17 11:00 Metoclopramide HCl (Reglan) 10 mg IVPUSH ONETIME ONE Stop: 06/01/17 06:01 Last Admin: 06/01/17 06:37 Dose: 10 mg Morphine Sulfate (Duramorph Pf) Confirm Administered Dose 1 mg .ROUTE .STK-MED ONE Stop: 06/01/17 07:19 Ondansetron HCl (Zofran) Confirm Administered Dose 4 mg .ROUTE .STK-MED ONE Stop: 06/01/17 07:52 Ondansetron HCl (Zofran) 4 mg IVPUSH ONETIME PRN PRN Reason: Nausea/Vomiting Stop: 06/01/17 11:00 Oxytocin (Pitocin) Confirm Administered Dose 10 unit .ROUTE .STK-MED ONE Stop: 06/01/17 07:52 Phenylephrine HCl (Bossman-Synephrine) Confirm Administered Dose 10 mg .ROUTE .STK- MED ONE Stop: 06/01/17 07:52 Pneumococcal Polyvalent Vaccine (Pneumovax 23) 0.5 ml IM .ONCE ONE Stop: 06/02/17 08:31 Last Admin: 06/02/17 08:19 Dose: 0.5 ml Sodium Chloride (Saline Flush) 10 ml FLUSH ASDIRECTED PRN PRN Reason: Keep Vein Open *Q Meaningful Use (DIS) - VTE *Q VTE Criteria *Q: - Stroke *Q Stroke Criteria *Q: - AMI *Q AMI Criteria *Q:
== END 2017-06-04 10:30 | disposition home or self-care (01) | DRG 765 ==
LOC: EEVIPCON 05:24 → JD.OB 05:24
PROVIDERS: ADMIT Obstetrics & Gynecology; ATTEND Obstetrics & Gynecology
PROC: 10D00Z1 Extraction of Products of Conception, Low, Open Approach (ICD-10-PCS; principal; 2017-06-01)
DX: O34.211 Maternal care for low transverse scar from previous cesarean delivery (principal); K83.1 Obstruction of bile duct; O26.62 Liver and biliary tract disorders in childbirth; N85.8 Other specified noninflammatory disorders of uterus; Z3A.37 37 weeks gestation of pregnancy; Z37.0 Single live birth; K71.0 Toxic liver disease with cholestasis; Z87.891 Personal history of nicotine dependence
CPT/HCPCS: 36415; 80306; 85025; 85027; 86850; 86900; 86901; 87641; 90471; 90707; 90732; 94762; A9270-GY; G0009; J0690; J1200; J1885; J2274; J2370; J2405; J2590; J2765; J7042; J7120